=== PATIENT | female | born 1995 | race African-American/Black ===

== ENCOUNTER 2023-02-11 19:25 | Inpatient (IN) | payer SELFPAY ==
[2023-02-11] MEDS ORDERED: Vancomycin HCl 750 MG in Sodium Chloride 0.9% 250 ML 250 ML IVPB SCH (23:15)
[2023-02-11] MEDS ORDERED: Zinc Oxide 20% Oint 30 GM TUBE TOP SCH (23:45)
[2023-02-11] MEDS ORDERED: Potassium Chloride 20 MEQ TAB PO SCH (23:45)
[2023-02-11 23:51] VITALS: BMI 32.6
[2023-02-12] MEDS: Vancomycin 1 GM in Sodium Chloride 0.9% 250 ML 250 ML IVPB SCH ×4 (00:13→23:22)
[2023-02-12] MEDS: Acetaminophen 325 MG TAB PO PRN ×2 (00:13→11:25)
[2023-02-12 01:40] LABS: Syphilis Antibody Nonreactive (Nonreactive); Syphilis Antibody Index 0.05 S/CO (<1.00 Non-Reactive)
[2023-02-12 05:06] LABS: Anion Gap 11 mmol/L (10-20); BUN (Urea Nitrogen) 11 mg/dL (7.0-18.7); Calc. Creatinine Clearance 169 mL/min (70-130); Calcium 8.2 mg/dL (7.8-10.44); Carbon Dioxide 25 mmol/L (22-29); Chloride 108 mmol/L (98-107); Estimated GFR 118; Glucose 127 mg/dL (70-105); Potassium 3.5 mmol/L (3.5-5.1); Sodium 140 mmol/L (136-145)
[2023-02-12 05:16] LABS: #Basophils 0.1 10x3/uL (0.0-0.2); #Eosinphils 0.7 10x3/uL (0.0-0.5); #Monocytes 0.8 10x3/uL (0.0-1.1); #Neutrophils 6.5 10x3/uL (1.5-8.4); %Basophils 0.9 % (0.0-2.0); %Eosinophils 6.6 % (0.0-6.0); %Lymphocytes 26.9 % (18.0-47.0); %Monocytes 7.2 % (0.0-10.0); Hematocrit 28.2 % (34.9-44.5); Hemoglobin 8.8 g/dL (12.0-15.5); Mean Corpuscular HGB CONC 31.2 g/dL (32.0-36.0); Mean Corpuscular Hemoglobin 24.1 pg (27.0-33.0); Mean Corpuscular Volume 77.3 fl (81.6-98.3); Platelet Count 727 10x3/uL (150-450); RBC Distribution Width 15.9 % (11.5-14.5); Red Blood Cell (RBC) Count 3.65 10x6/uL (3.90-5.03); White Blood Cell (WBC) Count 11.2 10x3/uL (3.5-10.5)
[2023-02-12] MEDS: Zinc Oxide 20% Oint 30 GM TUBE TOP SCH ×3 (06:15→22:26)
[2023-02-12 07:03] LABS: Bilirubin Neg (Negative); Blood, Urine 10 (Negative); Clarity Slightly Cloudy (Clear); Glucose, Urine (Dipstick) Normal (Negative); Ketone, Urine Negative (Negative); Leukocyte 500 (Negative); Nitrite Negative (Negative); Protein, Urine (Dipstick) 15 mg/dl (Neg-Trace)
[2023-02-12 07:09] LABS: Bacteria/HPF 3+ HPF (None Seen); Squamous Epithelial 0-3 HPF (0-3)
[2023-02-12] MEDS ORDERED: Vancomycin 1.5 GM in Sodium Chloride 0.9% 250 ML 300 ML IVPB SCH (09:00)
[2023-02-12] MEDS ORDERED: FLU VACC QS2023-24(6MOS UP)/PF 60 MCG/0.5 ML SYRINGE IM ONE (09:00)
[2023-02-12] MEDS ORDERED: Senokot 8.6 MG TAB PO PRN (14:53)
[2023-02-12] MEDS ORDERED: Senokot 8.6 MG TAB PO SCH (16:00)
[2023-02-13] MEDS: Zinc Oxide 20% Oint 30 GM TUBE TOP SCH (06:45)
[2023-02-13 08:20] LABS: #Basophils 0.1 10x3/uL (0.0-0.2); #Eosinphils 0.8 10x3/uL (0.0-0.5); #Monocytes 0.7 10x3/uL (0.0-1.1); #Neutrophils 4.9 10x3/uL (1.5-8.4); %Eosinophils 7.8 % (0.0-6.0); %Lymphocytes 32.3 % (18.0-47.0); %Monocytes 7.7 % (0.0-10.0); %Neutrophils 50.6 % (40.0-75.0); Hematocrit 29.3 % (34.9-44.5); Hemoglobin 9.1 g/dL (12.0-15.5); Mean Corpuscular HGB CONC 31.1 g/dL (32.0-36.0); Mean Corpuscular Hemoglobin 23.9 pg (27.0-33.0); Mean Corpuscular Volume 76.9 fl (81.6-98.3); Mean Platelet Volume 8.4 fl (7.4-10.4); Platelet Count 721 10x3/uL (150-450); RBC Distribution Width 16.1 % (11.5-14.5); Red Blood Cell (RBC) Count 3.81 10x6/uL (3.90-5.03); White Blood Cell (WBC) Count 9.6 10x3/uL (3.5-10.5)
[2023-02-13] MEDS ORDERED: Fluconazole 100 MG TAB PO SCH (09:00)
[2023-02-13] MEDS: Vancomycin 1 GM in Sodium Chloride 0.9% 250 ML 250 ML IVPB SCH (09:05)
[2023-02-13 11:52] VITALS: BP 131/65; TEMP 98.3
[2023-02-13 12:35] LABS: ANA Symphony (Qualitative) Negative (Negative); ANA Symphony (Quantitative) 0.2 Ratio (< 0.7 Negative); dsDNA IgG Antibody 1.1 IU/mL (<10 Negative)
== END 2023-02-13 14:13 | disposition home or self-care (01) | DRG 607 ==
LOC: CSHTELE 21:32
PROVIDERS: ADMIT Internal Medicine; ATTEND Physician Assistant
DX: L30.9 Dermatitis, unspecified (principal); L03.114 Cellulitis of left upper limb; L03.116 Cellulitis of left lower limb; L03.113 Cellulitis of right upper limb; L03.115 Cellulitis of right lower limb; E87.6 Hypokalemia; D75.1 Secondary polycythemia; Z86.16 Personal history of COVID-19; Z86.711 Personal history of pulmonary embolism; Z82.49 Family history of ischemic heart disease and other diseases of the circulatory system; Z83.3 Family history of diabetes mellitus; D75.839 Thrombocytosis, unspecified
CPT/HCPCS: 36415; 80048; 80202; 81001; 83735; 85025; 86038; 86060; 86225; 86780; 87077; 87081; 87086; 87186; 87430; 97139; J1650; J3370; J7050